=== PATIENT | female | born 1980 | race Caucasian/White ===

== ENCOUNTER 2023-04-09 14:49 | Outpatient (CLI) | payer OTHER | END 2023-04-09 14:50 | disposition home or self-care (01) | LOC: CSHMAMMO 14:49 | PROVIDERS: ATTEND Nurse Practitioner Women's Health | DX: Z12.31 Encounter for screening mammogram for malignant neoplasm of breast (principal) | CPT/HCPCS: 77063; 77067 ==

== ENCOUNTER 2023-06-06 12:16 | Emergency (ER) | payer OTHER ==
[2023-06-06] MEDS ORDERED: Ibuprofen 200 MG TAB ONE (12:59)
[2023-06-06 13:13] LABS: SARS-CoV-2 NAA Rapid Test Not Detected (NotDetected)
[2023-06-06] MEDS ORDERED: Acetaminophen 500 MG TAB ONE (13:37)
[2023-06-06] MEDS ORDERED: Ventolin HFA Inhaler 60 PUFF INHALER ONE (13:54)
== END 2023-06-06 14:36 | disposition home or self-care (01) ==
LOC: CSHERS 12:16
DX: J10.1 Influenza due to other identified influenza virus with other respiratory manifestations (principal); J45.901 Unspecified asthma with (acute) exacerbation; Z20.822 Contact with and (suspected) exposure to COVID-19
CPT/HCPCS: 71045